=== PATIENT | female | born 1955 | race African-American/Black ===

== ENCOUNTER 2024-01-10 03:27 | Emergency (ER) | payer BC, MEDICAID ==
[~2024-01-10] VITALS: Ht 157.5 cm; Wt 83.0 kg
[~2024-01-10 03:27] MED LIST: ATEN50TA PO; CYAN10003 SL; HYDR-4001 MT; HYDR25TA PO; LEVO750T68 MT; METR-167 MT; TOPUD PO
[2024-01-10 04:16] VITALS: O2SAT 100
[2024-01-10 05:25] LABS: CHLORIDE 106 mEq/L (98-107); POTASSIUM 3.7 mEq/L (3.5-5.1); SODIUM 141 mEq/L (136-145)
[2024-01-10 05:27] LABS: CARBON DIOXIDE 29 mEq/L (21-32)
[2024-01-10 05:32] LABS: GLUCOSE 120 mg/dL (70-105); UREA NITROGEN BLOOD 11 mg/dL (9-23)
[2024-01-10 05:33] LABS: ALANINE AMINOTRANSFERASE 18 IU/L (10-49)
[2024-01-10 05:34] LABS: ALBUMIN 4.7 g/dL (3.2-4.8); ASPARTATE AMINOTRANSFERASE 21 IU/L (<34); BILIRUBIN DIRECT 0.1 mg/dL (<=3.0); BILIRUBIN TOTAL 0.4 mg/dL (0.1-1.0); PROTEIN TOTAL 7.6 g/dL (6.0-8.3)
[2024-01-10 05:35] LABS: BASOPHILS % 0.6 % (0.0-2.0); DIFFERENTIAL COMMENT 0; EOSINOPHILS % 2.5 % (0.0-5.0); HEMATOCRIT. 40.8 % (36.0-48.0); HEMOGLOBIN. 12.5 g/dL (12.0-16.0); LYMPHOCYTES % 23.8 % (20.0-50.0); MEAN CORPUSCULAR HEMOGLOBIN 23.3 pg (28.0-32.0); MEAN CORPUSCULAR HGB CONC 30.7 g/dL (31.0-37.0); MEAN PLATELET VOLUME 9.9 fl (7.4-10.4); MONOCYTES % 8.4 % (2.0-8.0); NEUTROPHILS % 64.7 % (40.0-76.0); PLATELET 215 x1000/uL (130-400); RED BLOOD CELL COUNT 5.37 mill/uL (4.2-5.4); RED CELL DISTRIBUTION WIDTH 15.3 % (11.6-14.6); WHITE BLOOD COUNT 5.9 x1000/uL (4.5-11.0)
[2024-01-10 06:05] LABS: INR 0.9; PROTHROMBIN TIME 10.5 sec (9.6-11.0)
[2024-01-10] MEDS ORDERED: CEFTRIAXONE 2GM/50ML 50 ML IV ONE (07:00)
[2024-01-10] MEDS: ONDANSETRON HCL 4MG/2ML INJ IV ONE (09:12)
[2024-01-10] MEDS: SODIUM CHLORIDE 0.9% 1,000 ML IV ONE (09:13)
[2024-01-10] MEDS: KETOROLAC 30MG/ML VIAL IM ONE (09:13)
[2024-01-10 09:24] LABS: CLARITY URINE TURBID (CLEAR); COLOR URINE RED (YELLOW); GLUCOSE URINE NEGATIVE (NEGATIVE); KETONES URINE NEGATIVE (NEGATIVE); LEUKOCYTE ESTERASE URINE 2+ (NEGATIVE); NITRITE URINE NEGATIVE (NEGATIVE); OCCULT BLOOD URINE 3+ (NEGATIVE); PH URINE 7.5 (4.5-8.0); PROTEIN URINE 3+ (NEGATIVE); SPECIFIC GRAVITY URINE 1.017 (1.005-1.030); UROBILINOGEN URINE 0.2 E.U./dL (0.2-1.0)
[2024-01-10] MEDS: ONDANSETRON 4MG ODT PO ONE (09:43)
[2024-01-10] MEDS: KETOROLAC 30MG/ML VIAL IV ONE (09:44)
[2024-01-10 09:46] LABS: RBC URINE TNTC /hpf (0-2)
[2024-01-10 09:47] LABS: BACTERIA URINE 2+; SQUAMOUS EPITHELIAL CELL URINE RARE /lpf (RARE/1+)
[2024-01-10 09:48] LABS: WBC URINE 0-2 /hpf (0-2)
[2024-01-10] MEDS: CEFTRIAXONE 2GM/50ML 50 ML IV NR (10:14)
[2024-01-10] MEDS ORDERED: IBUP-2029 MT (11:14)
[2024-01-10] MEDS ORDERED: HYDR-4001 MT (11:14)
[2024-01-10 12:00] VITALS: BP 125/64; PULSE 70; RESP 18; TEMP 98.5
== END 2024-01-10 12:26 | disposition home or self-care (01) ==
LOC: ER 03:27
DX: N13.30 Unspecified hydronephrosis (principal); I10 Essential (primary) hypertension; Z88.2 Allergy status to sulfonamides; Z88.5 Allergy status to narcotic agent; Z79.899 Other long term (current) drug therapy; Z90.49 Acquired absence of other specified parts of digestive tract; Z98.890 Other specified postprocedural states
CPT/HCPCS: 99285; 74176; 96365; 96361; 96375; 80076; 80048; 81003; 83690; 85025; 85610; 36415; 96372; J0696; J1885; J2405; J7030